=== PATIENT | male | born 1960 | race Caucasian/White ===

== ENCOUNTER 2019-08-16 05:47 | Day surgery (SDC) | payer BC ==
[2019-08-10 10:50] VITALS: BMI 29.0
[2019-08-16] MEDS ORDERED: PROPOFOL 20 ML ONE ×2 (07:27→09:21)
[2019-08-16] MEDS ORDERED: SUCCINYLCHOLINE CHLORIDE 200 MG/10 ML SYRINGE ONE (07:28)
--- NOTE | 2019-08-16 07:40 | OP ---
Operative Note - Note: Operative Date: 08/16/19 Pre-Operative Diagnosis: Right elbow tricep tear Operation: Right elbow tricep repair Implants: Arthrex swivelock x1 Post-Operative Diagnosis: Same as Pre-op Surgeon: Obdulio Sapp Insulation Blanket Maker: Misty Michael Anesthesia: General Operative Report Dictated: Yes
[2019-08-16] MEDS ORDERED: DEXAMETHASONE SOD PHOSPHATE/PF 10 MG/ML SDV ONE (07:44)
[2019-08-16] MEDS ORDERED: BUPIVACAINE HCL/PF 0.5% (5 MG/ML) 30 ML VIAL IJ ONE (07:45)
[2019-08-16] MEDS ORDERED: MIDAZOLAM HCL 2 MG/2 ML SINGLE DOSE VIAL ONE ×2 (07:45→08:18)
[2019-08-16] MEDS ORDERED: ceFAZolin SODIUM 1 GM VIAL ONE (08:01)
[2019-08-16] MEDS ORDERED: oxyCODONE HCL 5 MG TABLET PO PRN ×2 (09:16→14:11)
[2019-08-16] MEDS ORDERED: ONDANSETRON 4 MG/2 ML VIAL IVPUSH PRN ×2 (09:16→14:11)
[2019-08-16] MEDS ORDERED: LACTATED RINGERS SOLUTION 1,000 ML IV SCH (09:30)
--- NOTE | 2019-08-16 10:21 | OP ---
DATE OF OPERATION: 08/16/2019 PREOPERATIVE DIAGNOSIS: Right distal triceps rupture. POSTOPERATIVE DIAGNOSIS: Right distal triceps rupture. PROCEDURE: Right distal triceps repair. SURGEON: Obdulio Sapp MD ARTISTS' BOOKING REPRESENTATIVE: BRENDA Varner, whose skillful assistance was necessary for the safe and timely performance of this procedure. Ms. Michael was able to provide limb positioning, retraction, and assist in suture passing, as well as insertion of orthopedic fixation hardware. ANESTHESIA: Regional plus sedation. POSTOPERATIVE CONDITION: Stable. COMPLICATIONS: None. IMPLANTS: Arthrex SwiveLock x1. INDICATIONS: This is a pleasant, 58-year-old gentleman who had previously underwent a left distal triceps repair, who then reported feeling a pop in the right elbow. He was found to have a distal triceps rupture. Treatment options including nonoperative versus operative management were reviewed. Operative management was highly recommended to restore triceps function. We reviewed operative risks in detail including bleeding, infection, neurovascular injury, need for further surgery, postoperative pain and stiffness, failure to heal or re-rupture. We discussed medical risks such as heart attack, stroke, DVT, PE, and . I reviewed the postoperative rehabilitation protocol. I addressed all patient's questions and concerns. He voiced understanding and elected to proceed. DESCRIPTION OF PROCEDURE: The patient was brought to the operating room after receiving a block in the preoperative holding area. Sedation was then administered. The right upper extremity was then prepped and draped in the usual sterile fashion. A preoperative dose of antibiotics was given, and the usual timeout procedure was performed. An incision was now marked out, which was curvilinear over the area of the olecranon. The curve was placed radially to avoid the area of the ulnar nerve. The incision was then carried down through skin to subcutaneous tissue. Blunt spreading was used to expose the area of the triceps rupture. Hematoma was evacuated. Electrocautery was used to maintain hemostasis. The ruptured end of the triceps was identified along with a large enthesophyte which was incorporated into this. The majority of the enthesophyte was debrided utilizing a rongeur. In addition, the remaining enthesophyte base on the triceps was debrided using a rongeur as well as a brett. After preparing the bed, attention was turned to the tendon. Here, 2 sutures were passed in whipstitch fashion up the medial and lateral aspects of the triceps tendon. The sutures were started and ended about 2 cm proximal to the tip and came out on the deep surface of the triceps. Two 2.0-mm drill holes were now placed from the triceps insertion on the more proximal of the olecranon, coming out the volar surface of the olecranon. Drill placement was verified fluoroscopically to ensure no penetration into the joint. The previously passed sutures, along with 2 FiberLink sutures which were passed through the tendon in the area of the sutures, were now loaded onto a suture passer, and both were loaded into the parallel tunnels. The FiberLink sutures were then used to create a crossing pattern with the previously placed sutures, creating a [id number] repair of the triceps. Pulling tension on these sutures reduced the triceps into its anatomic attachment. To fix these sutures in place, a 4.75 SwiveLock drilled, tapped, loaded with the sutures and then inserted, aiming distally to avoid any penetration into the joint. The SwiveLock was then inserted, gaining excellent purchase. At this point, the triceps was passed through a range of motion and found to be stable. The wound was copiously irrigated. Excess sutures were cut. The deep tissue was approximated using 0 Vicryl. The subcutaneous tissue was approximated using 2-0 Vicryl. The skin was closed using a running 4-0 nylon. Sterile dressings were placed. Patient was placed into a well-padded posterior splint. He was transferred to recovery room in stable condition. Georgina [id number]
[2019-08-16 10:43] VITALS: TEMP 97.8
[2019-08-16 11:17] VITALS: BP 136/86; PULSE 77
== END 2019-08-16 11:10 | disposition home or self-care (01) ==
LOC: FASU 05:47
PROVIDERS: ATTEND Orthopaedic Surgery Sports Medicine
PROC: 0LM30ZZ Reattachment of Right Upper Arm Tendon, Open Approach (ICD-10-PCS; principal; 2019-08-16 08:23)
DX: S46.311A Strain of muscle, fascia and tendon of triceps, right arm, initial encounter (principal); X58.XXXA Exposure to other specified factors, initial encounter; Y93.9 Activity, unspecified; Y92.9 Unspecified place or not applicable
CPT/HCPCS: 73070-TC-RT-FY; 94760